=== PATIENT | male | born 2000 | race Caucasian/White ===

== ENCOUNTER 2022-05-01 08:29 | Emergency (ER) | payer OTHER ==
[2022-05-01 09:12] LABS: EOSINOPHIL 6.6 % (0-5); HCT 41.5 % (42.0-52.0); HGB 14.1 g/dl (13.2-18.0); LYMPHOCYTE 34.2 % (15-48); MCH 29.9 pg (25.0-31.0); MCV 87.9 fL (78.0-100.0); MONOCYTE 7.1 % (0-12); MPV 9.2 fL (6.0-9.5); NEUTROPHIL 50.8 % (41-80); NRBC 0; PLT 229 K/uL (150-400); RBC 4.72 M/uL (4.70-6.00); WBC 7.2 K/uL (4.0-10.5)
[2022-05-01 09:25] LABS: BILIRUBIN NEGATIVE (NEGATIVE); BLOOD NEGATIVE Ery/uL (NEGATIVE); CLARITY CLEAR (CLEAR); COLOR YELLOW (YELLOW); GLUCOSE (U) NORMAL (NORMAL); LEUKOCYTES NEGATIVE Leu/uL (NEGATIVE); NITRITE NEGATIVE (NEGATIVE); PROTEIN NEGATIVE (NEGATIVE)
[2022-05-01 09:44] LABS: ALBUMIN 4.2 g/dL (3.4-5.0); BILIRUBIN - TOTAL 0.3 mg/dL (0.2-1.0); BUN/CREAT RATIO (CALC) 24.1 RATIO; CREATININE 0.79 mg/dL (0.67-1.17); GLOBULIN (CALCULATION) 3.4 g/dL; POTASSIUM 4.1 mmol/L (3.5-5.1); TOTAL PROTEIN 7.6 g/dL (6.4-8.2)
[2022-05-01] MEDS ORDERED: NORCO 5-325 TA1 EACH PO (10:18)
[2022-05-01] MEDS ORDERED: NAPROXEN500 MG PO (10:18)
[2022-05-02 22:07] LABS: CHLAMYDIA TRACHOMATIS, NAA Negative (Negative); NEISSERIA GONORRHOEAE, NAA Negative (Negative)
== END 2022-05-01 10:38 | disposition home or self-care (01) ==
LOC: FER 08:29
PROVIDERS: Internal Medicine
DX: R10.31 Right lower quadrant pain (principal)
CPT/HCPCS: 36415; 76870; 80053; 81003; 83605; 85025; 87491; 87591